=== PATIENT | male | born 1985 | race Hispanic/Latino ===

== ENCOUNTER 2017-12-07 18:18 | Emergency (ER) | payer MEDICAID ==
[2017-12-07] MEDS ORDERED: MAG HYDROX/AL HYDROX/SIMETH ES 30 ML SUSP UDCUP ONE (20:34)
[2017-12-07] MEDS ORDERED: ONDANSETRON ODT 4 MG TAB ONE (20:34)
[2017-12-07] MEDS ORDERED: LIDOCAINE HCL 2% VISCOUS 15 ML UDCUP ONE (20:34)
== END 2017-12-07 21:14 | disposition home or self-care (01) ==
LOC: EDH 18:18
DX: K29.70 Gastritis, unspecified, without bleeding (principal); J45.909 Unspecified asthma, uncomplicated; Z72.0 Tobacco use

== ENCOUNTER → 2017-12-15 | Outpatient (CLI) | payer MEDICAID | LOC: RAH 08:11 | PROVIDERS: ATTEND Family Medicine | DX: R10.13 Epigastric pain (principal) | CPT/HCPCS: 74240 ==

== ENCOUNTER 2018-03-12 20:55 | Emergency (ER) | payer MEDICAID ==
[2018-03-12] MEDS ORDERED: LIDOCAINE HCL 2% VISCOUS 15 ML UDCUP ONE (21:12)
[2018-03-12] MEDS ORDERED: MAG HYDROX/AL HYDROX/SIMETH ES 30 ML SUSP UDCUP ONE (21:12)
[2018-03-12 21:51] LABS: BASOPHILS % (AUTO) 0.3 % (0.0-5.0); EOSINOPHILS % (AUTO) 1.3 % (0.0-8.0); HEMATOCRIT 42.6 % (42-54); LYMPHOCYTES % (AUTO) 21.8 % (21.0-51.0); MEAN CORPUSCULAR HGB CONC 34.6 g/dL (32.0-36.0); MEAN CORPUSCULAR VOLUME 86.7 fL (79-99); MONOCYTES % (AUTO) 8.1 % (3.0-13.0); NEUTROPHILS % (AUTO) 68.5 % (40.0-77.0); PLATELET COUNT (AUTO) 175 K/uL (130-400); RED BLOOD CELL COUNT(AUTO) 4.91 MIL/uL (4.50-6.20); RED CELL DISTRIBUTION WIDTH 13.9 % (11.0-15.5); WHITE BLOOD COUNT (AUTO) 10.8 K/uL (4.8-10.8)
[2018-03-12 22:23] LABS: POTASSIUM 3.8 mmol/L (3.5-5.1)
[2018-03-12 22:28] LABS: ALBUMIN 3.5 g/dL (3.5-5.0); BILIRUBIN,TOTAL 0.2 mg/dL (0.2-1.0); TOTAL PROTEIN, SERUM 7.2 g/dL (6.0-8.3)
== END 2018-03-12 22:53 | disposition home or self-care (01) ==
LOC: EDH 20:55
DX: K21.9 Gastro-esophageal reflux disease without esophagitis (principal); J45.909 Unspecified asthma, uncomplicated; Z72.0 Tobacco use
CPT/HCPCS: 36415; 76705; 80053; 85025

== ENCOUNTER 2018-09-20 17:10 | Emergency (ER) | payer MEDICAID ==
[2018-09-20] MEDS ORDERED: IBUPROFEN 400 MG TABLET ONE (18:24)
== END 2018-09-20 19:20 | disposition home or self-care (01) ==
LOC: EDH 17:10
DX: J06.9 Acute upper respiratory infection, unspecified (principal); J45.909 Unspecified asthma, uncomplicated; F32.9 Major depressive disorder, single episode, unspecified; F41.9 Anxiety disorder, unspecified; Z72.0 Tobacco use
CPT/HCPCS: 87804

== ENCOUNTER 2020-02-09 18:55 | Emergency (ER) | payer MEDICAID | END 2020-02-09 20:07 | disposition home or self-care (01) | LOC: EDH 18:55 | DX: S16.1XXA Strain of muscle, fascia and tendon at neck level, initial encounter (principal); S00.83XA Contusion of other part of head, initial encounter; J45.909 Unspecified asthma, uncomplicated; F41.9 Anxiety disorder, unspecified; F32.9 Major depressive disorder, single episode, unspecified; Z72.0 Tobacco use; V49.9XXA Car occupant (driver) (passenger) injured in unspecified traffic accident, initial encounter; Y93.89 Activity, other specified; Y92.488 Other paved roadways as the place of occurrence of the external cause; Y99.8 Other external cause status | CPT/HCPCS: 70450; 72125 ==

== ENCOUNTER 2021-09-08 18:11 | Emergency (ER) | payer MEDICAID ==
[~2021-09-08] VITALS: Ht 172.7 cm; Wt 119.7 kg
[2021-09-08] MEDS ORDERED: KETOROLAC 30MG VIAL (30MG/ML) IM ONE (19:30)
[2021-09-08] MEDS ORDERED: HYDROCODONE/ACETAMINOPHEN 5/325 MG TAB PO ONE (19:30)
[2021-09-08 20:00] VITALS: BP 132/86
[2021-09-08] MEDS ORDERED: ACET1TAB25 PO (20:03)
[2021-09-08] MEDS ORDERED: AMOX-429 PO (20:03)
[2021-09-08] MEDS ORDERED: IBUP-2070 PO (20:03)
== END 2021-09-08 20:17 | disposition home or self-care (01) ==
LOC: EDH 18:11
DX: K08.89 Other specified disorders of teeth and supporting structures (principal); K03.81 Cracked tooth; F17.210 Nicotine dependence, cigarettes, uncomplicated; Z79.1 Long term (current) use of non-steroidal anti-inflammatories (NSAID)
CPT/HCPCS: 96372; 99283; J1885

== ENCOUNTER 2022-10-27 15:13 | Emergency (ER) | payer MEDICAID ==
[~2022-10-27] VITALS: Ht 172.7 cm; Wt 117.9 kg
[~2022-10-27 15:13] MED LIST: ACET-2079 PO; AMOX-429 PO; IBUP-2070 PO
[2022-10-27 15:17] VITALS: BP 150/62
[2022-10-27] MEDS ORDERED: KETOROLAC 30MG VIAL (30MG/ML) IM ONE (16:30)
[2022-10-27] MEDS ORDERED: NAPR500T6 PO (16:43)
== END 2022-10-27 16:56 | disposition home or self-care (01) ==
LOC: EDH 15:13
DX: S93.602A Unspecified sprain of left foot, initial encounter (principal); M72.2 Plantar fascial fibromatosis; G43.909 Migraine, unspecified, not intractable, without status migrainosus; F32.A Depression, unspecified; W18.31XA Fall on same level due to stepping on an object, initial encounter; Y93.89 Activity, other specified; Y92.89 Other specified places as the place of occurrence of the external cause; Y99.8 Other external cause status
CPT/HCPCS: 99283; 73630; 96372; J1885